=== PATIENT | male | born 1980 | race Caucasian/White ===

== ENCOUNTER 2017-03-17 20:45 | Emergency (ER) | payer OTHER ==
[2017-03-17 21:07] VITALS: BP 134/76; RESP 20; O2SAT 97
[2017-03-17] MEDS ORDERED: Lidocaine 1% Inj (20ml) ONE (21:36)
--- NOTE | 2017-03-17 21:58 | C.PDOC ---
History Of Present Illness 36 year old male presents to the ED for evaluation of a laceration on his upper lip. Patient reports he was rollerskating today when he fell and sustained a laceration to his upper lip. Patient denies LOC, headache, head injury, visual changes, nausea vomiting. Time Seen by Provider: 03/17/17 21:12 Chief Complaint (Nursing): Abnormal Skin Integrity History Per: Patient History/Exam Limitations: no limitations Onset/Duration Of Symptoms: Hrs Current Symptoms Are (Timing): Still Present Location Of Injury: Anterior: Mouth (upper lip) Quality Of Symptoms: Painful Recent travel outside of the [place]: No Additional History Per: Patient Past Medical History Reviewed: Historical Data, Nursing Documentation, Vital Signs Vital Signs: Last Vital Signs Temp 98 F 03/17/17 22:47 Pulse 82 03/17/17 22:47 Resp 20 03/17/17 22:47 BP 134/76 03/17/17 21:04 Pulse Ox 97 03/18/17 06:39 - Medical History PMH: No Chronic Diseases Surgical History: No Surg Hx Family History: States: Unknown Family Hx - Social History Hx Alcohol Use: No Hx Substance Use: No Review Of Systems Constitutional: Negative for: Fever, Chills Gastrointestinal: Negative for: Vomiting Skin: Positive for: Other (Laceration) Neurological: Negative for: Headache, Other (LOC) Physical Exam - Physical Exam Appears: Non-toxic, No Acute Distress Skin: Normal Color, Warm, Dry Head: Atraumatic, Normacephalic Eye(s): bilateral: Normal Inspection, PERRL, EOMI Nose: No Discharge, No Deformity Oral Mucosa: Moist Tongue: No Laceration, No Bleeding Lips: Swelling (to upper lip), Laceration (2 cm v shaped plac below the [place] border of upper lip- right side) Teeth: Normal Dentition, No Tender To Palpation, No Loose, No Avulsed Gingiva: No Bleeding Neck: Normal ROM, Supple Extremity: Normal ROM, No Tenderness, No Swelling Neurological/Psych: Oriented x3, Normal Speech, Normal Cognition Gait: Steady ED Course And Treatment O2 Sat by Pulse Oximetry: 97 (On RA) Pulse Ox Interpretation: Normal Progress Note: Patient is resting comfortably, and is in no acute distress. Head injury precautions also d/w pt who expressed understanding. Patient was instructed to follow up with PMD in 1-2 days for further evaluation. Laceration - Laceration Repair No standard instances Wound Length (In cm): 1.4 cm Description Of Wound: Irregular (V-Shaped) Wound Cleansed With: Sterile Saline Anesthesia: Lidocaine 1% Wound Examination: Irrigated With Saline (20cc) Wound Closure: Suture (X6) Suture Technique And Material Used: Interrupted, Vicryl (6-o) Wound Complexity: Simple (pt tolerated well) Disposition Counseled Patient/Family Regarding: Diagnosis, Need For Followup - Disposition Referrals: Bessie Conde MD [Staff Provider] - Disposition: HOME/ ROUTINE Disposition Time: 21:55 Condition: STABLE Additional Instructions: Wound check in 2 days Apply ICe pack for swelling tylenol or advill for pain Apply bacitracin or neosporin oint Return to ER if increase swelling, redness, or worse Instructions: Care For Your Absorbable Stitches (ED) Forms: [facility] (Frisian) - Clinical Impression Clinical Impression: Laceration of lip - PA / [employer] / Resident Statement MD/DO has reviewed & agrees with the documentation as recorded. - Scribe Statement The provider has reviewed the documentation as recorded by the Scribe Rommel Miranda All medical record entries made by the Scribe were at my direction and personally dictated by me. I have reviewed the chart and agree that the record accurately reflects my personal performance of the history, physical exam, medical decision making, and the department course for this patient. I have also personally directed, reviewed, and agree with the discharge instructions and disposition.
[2017-03-17] MEDS ORDERED: Bacitracin 500 Units/gm Oint Foilpak UD ONE (22:03)
[2017-03-17 22:48] VITALS: PULSE 82; TEMP 98
== END 2017-03-17 22:46 | disposition home or self-care (01) ==
LOC: C.ER 20:45
DX: S01.511A Laceration without foreign body of lip, initial encounter (principal); W18.30XA Fall on same level, unspecified, initial encounter; Y93.51 Activity, roller skating (inline) and skateboarding